=== PATIENT | male | born 1960 ===

== ENCOUNTER 2023-11-24 01:22 | Outpatient (CLI) | payer OTHER, SELFPAY ==
[2023-11-24 14:54] LABS: Abs Immature Grans 0.11 10^3/uL (0.0-0.06); Absolute Basophil Count 0.08 10^3/uL (0.0-0.2); Absolute Eosinophil Count 0.19 10^3/uL (0.0-0.7); Absolute Lymphocyte Count 0.82 10^3/uL (1.2-3.4); Absolute Monocyte Count 0.41 10^3/uL (0.1-0.8); Absolute Neutrophil Count 5.93 10^3/uL (1.2-6.7); Basophils % 1.1 %; Eosinophils % 2.5 %; HCT 38.7 % (40.0-50.0); HGB 13.4 g/dL (13.5-17.5); Immature Grans % 1.5 %; Lymphocytes % 10.9 %; MCH 34.3 pg (27.0-33.0); MCHC 34.6 % (32.0-36.0); MCV 99 fL (80-95); MPV 11.9 fL (8.0-11.0); Monocytes % 5.4 %; Neutrophils % 78.6 %; RBC 3.91 10^6/uL (4.36-5.78); RDW-SD 75.2 fL; WBC 7.54 10^3/uL (4.4-10.8)
[2023-11-24 14:59] LABS: INR 1.5 (0.9-1.1); Prothrombin Time 14.8 sec (9.1-11.1)
[2023-11-24 15:11] LABS: ALT 109 U/L (16-63); AST 738 U/L (15-37); Albumin 1.9 g/dL (3.4-5.0); Alkaline Phosphatase 419 U/L (46-116); Anion Gap 6.1 mmol/L (3-11); BUN 16 mg/dL (7-18); Bilirubin, Total 9.58 mg/dL (0.2-1.0); CO2 25.9 mmol/L (21.0-32.0); CREATININE 1.1 mg/dL (0.70-1.30); Calcium 9.9 mg/dL (8.5-10.1); Chloride 98 mmol/L (98-107); Glucose 173 mg/dL (74-106); Potassium 4.4 mmol/L (3.5-5.1); Sodium 130 mmol/L (136-145); Total Protein 7.9 g/dL (6.4-8.2)
[2023-11-24 15:13] LABS: Anisocytosis 1+; Diff Comment RBC Morph Reviewed; Platelet Count 139 10^3/uL (130-400)
== END 2023-11-24 01:23 | disposition home or self-care (01) ==
LOC: LBO 01:22
PROVIDERS: Visit Provider Internal Medicine Hematology & Oncology
DX: C22.0 Liver cell carcinoma (principal)
CPT/HCPCS: 36415; 80053; 82105; 85025; 85610